=== PATIENT | male | born 1975 | race African-American/Black ===

== ENCOUNTER 2019-07-15 20:01 | Inpatient (IN) | payer MEDICAID ==
[~2019-07-15] VITALS: Ht 182.9 cm; Wt 123.8 kg
--- NOTE | 2019-07-15 20:08 | NUR ---
SL NITRO 2ND ONE GIVEN, PT REPORTS CHEST PAIN, EDUCATED ON USE AND SIDE EFFECTS.
--- NOTE | 2019-07-15 20:09 | NUR ---
EKG IN PROGRESS IN TRIAGE.
[2019-07-15 20:36] LABS: BASOPHIL % 0.6 % (0-2); PLATELET COUNT 290 x10^3mcL (130-400); RED CELL DISTRIBUTION WIDTH 13.6 % (11.5-14.5)
--- NOTE | 2019-07-15 20:48 | NUR ---
DR. CHAPMAN AT BEDSIDE FOR MSE. 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 PT ATTACHED TO FULL SCREEN PRINTING CLOTH SPREADER, CONTINOUS PULSE OXIMETYR. PT AOX4 ABLE TO RESPNOD TO COMMANDS, MAKE NEEDS KNOWN. LUNG SOUNDS CTAB.
[2019-07-15 20:49] LABS: CALCIUM 8.5 mg/dL (8.5-10.1); CARBON DIOXIDE 25.9 mmol/L (21-32); CHLORIDE SERUM 107 mmol/L (98-107); CREATININE SERUM 1.1 mg/dL (0.7-1.3); GFR1 > 60 mL/min; GLUCOSE SERUM 115 mg/dL (74-106); POTASSIUM SERUM 3.7 mmol/L (3.5-5.1); SODIUM SERUM 143 mmol/L (136-145)
[2019-07-15 20:54] LABS: ALBUMIN 3.9 g/dL (3.4-5.0); ALKALINE PHOSPHATASE 73 U/L (46-116); ALT/SGPT 29 U/L (16-63); AST/SGOT 11 U/L (15-37); BILIRUBIN TOTAL 0.34 mg/dL (0.20-1.00); TOTAL PROTEIN, SERUM 7.6 g/dL (6.4-8.2)
--- NOTE | 2019-07-15 21:03 | NUR ---
SL NITRO GIVEN AT THIS TIME, EDUCATED PT AND FMAILY MEMBER AT BEDSIDE ON USE AND SIDE EFFECTS.
--- NOTE | 2019-07-15 21:08 | NUR ---
SL NITRO 2ND ONE GIVEN, PT REPORTS CHEST PAIN, EDUCATED ON USE AND SIDE EFFECTS.
--- NOTE | 2019-07-15 21:13 | NUR ---
PT DENIES CHEST PAIN AT THIS TIME. SL NITRO HELD.
--- NOTE | 2019-07-15 21:14 | NUR ---
DR. CHAPMAN MADE AWARE OF 2X NITRO SL GIVEN AND 3RD ONE HELD.
--- NOTE | 2019-07-15 21:55 | NUR ---
DR. CHAPMAN AT BEDSIDE FOR ASSESSMENT, DISCUSSING PLAN OF CARE. PER PT HE REPORTS "FEELING BETTER, JUST WEAK". PER DR. CHAPMAN PLAN TO ADMIT PATIENT.
[2019-07-15] MEDS ORDERED: METOPROLOL TART25 M1 PO (22:14)
--- NOTE | 2019-07-15 22:57 | NUR ---
PER DR. CHAPMAN OK TO ADMIT PATIENT TO TELE. WILL AWAIT FOR BED AND GIVE REPORT TO RN.
--- NOTE | 2019-07-15 23:47 | NUR ---
PT REPORT CALLED TO CARLI TIDWELL TO ASSUME PT CARE.
--- NOTE | 2019-07-15 23:55 | NUR ---
PT TRANSFERRED TO [facility] BY [facility] BY MYSELF AND GUNNER EMT. PT ON FULL CM FOR TRANSFER. PT ACCEPTED BY JORGE LUIS TIDWELL AND CARLI TIDWELL TO ASSUME PT CARE. PT AOX4, RESP EVEN AND UNLABORED, NO ACUTE DISTRESS NOTED. PT TRANSFERRED FROM [facility] TO BED WITHOUT INCIDENT.
--- NOTE | 2019-07-16 | NUR ---
RECEIVED PT FROM ED VIA TONY, CAME IN DUE TO CHEST PAIN W/ NUMBNESS ON LFA. AAOX4. C/O 03/17 HEADACHE. DENIES DIZZINESS. ABLE TO FOLLOW COMMANDS. NO SOB NOTED, LUNG SOUNDS DIMINISHED ON AUSCULTATION, O2 SAT=97%, RA. DENIES CHEST PAIN/PRESSURE, SR ON THE MONITOR. DENIES ABDOMINAL DISCOMFORT. BOWEL SOUNDS ACTIVE. ABDOMEN IS ROUND AND SOFT. VOIDS. IV SITE PATENT AND INTACT. SIDE RAILS UPX2. CALL LIGHT ON REACH. ENDORSED TO PRIMARY NURSE CARLI FOR CONTINUITY OF CARE
[2019-07-16 00:12] VITALS: BP 128/85
[2019-07-16 00:17] LABS: MAGNESIUM 2.2 mg/dL (1.8-2.4)
[2019-07-16 00:18] VITALS: Ht 182.9 cm; Wt 123.8 kg
[2019-07-16 00:20] LABS: CHOLESTEROL/HDL RATIO 5.7
--- NOTE | 2019-07-16 00:20 | NUR ---
PT RECEIVED FROM RESOURCE NURSE. PT A/O X4, ABLE TO MAKE NEEDS KNOWN. FAMILY AT BEDSIDE. TELE #8, PT ADMITTED FOR CP, BUT DENIES ANY AT THIS TIME. PULSES PALPABLE, NO EDEMA PRESENT. BREATHING IS EVEN AND UNLABORED ON RA, NO RESP DISTRESS NOTED. ABD SOFT AND ROUND, DENIES N/V. VOIDS FREELY, BRP. GENERALIZED WEAKNESS, AMBULATORY WITH STEADY GAIT. SKIN IS WARM AND DRY, INTACT. PT REPORTS 5/10 H/A IS IMPROVING; OFFERED PT PAIN MEDS, PT REFUSED AT THIS TIME. IV TO LFA, PATENT AND INTACT, SITE. NO ACUTE DISTRESS NOTED. ORIENTED PT TO ROOM AND CALL LIGHT. BED IN LOWEST SETTING, SIDE RAILS UP X2, CALL LIGHT WITHIN REACH. WILL CONT TO MONITOR.
[2019-07-16 00:27] LABS: T3 TOTAL 1.12 ng/mL
[2019-07-16 00:29] LABS: FREE T4 0.91 ng/dL (0.76-1.46); FREE THYROXINE INDEX 2.4 ug/dL (1.4-4.5); T4(THYROXINE) 6.4 ug/dL (4.7-13.3)
--- NOTE | 2019-07-16 05:23 | NUR ---
PT SLEPT WELL THROUGHOUT THE EVENING. BREATHING IS EVEN AND UNLABORED, NO RESP DISTRESS NOTED. PT DENIES ANY PAIN AT THIS TIME. IVF INFUSING WELL TO [facility], SITE WNL. NO ACUTE CHANGES ENCOUNTERED DURING SHIFT. ALL NEEDS MET AND ANTICIPATED. PT COMPLIANT WITH NURSING CARE. CALL LIGHT WITHIN REACH. WILL ENDORSE CARE TO AM NURSE.
[2019-07-16 05:27] VITALS: BP 133/88
[2019-07-16 06:13] LABS: BASOPHIL % 0.2 % (0-2); PLATELET COUNT 262 x10^3mcL (130-400); RED CELL DISTRIBUTION WIDTH 13.8 % (11.5-14.5)
[2019-07-16 06:43] LABS: CALCIUM 8.5 mg/dL (8.5-10.1); CARBON DIOXIDE 26.5 mmol/L (21-32); CHLORIDE SERUM 106 mmol/L (98-107); GFR1 > 60 mL/min; GLUCOSE SERUM 111 mg/dL (74-106); POTASSIUM SERUM 3.9 mmol/L (3.5-5.1); SODIUM SERUM 141 mmol/L (136-145)
--- NOTE | 2019-07-16 07:27 | NUR ---
PT IN NO ACUTE DISTRESS. CONTINUITY OF CARE ENDORSED TO GORDON TIDWELL. ALL QUESTIONS AND CONCERNS ADDRESSED.
--- NOTE | 2019-07-16 07:40 | NUR ---
RECEIVED PT FROM CORRECTIONAL FACILITY PSYCHIATRIST RN. Elder/PETER. TELE#8. DENIES CHEST PAIN/PRESSURE AT THIS TIME. PT DENIES ANY RIVERA AT THIS TIME. RESPIRATIONS EQUAL AND UNLABORED ON RA. DENIES SOB. URINE SAMPLE COLLECTED AND SENT TO LAB. PT ASKING IF HE CAN GO HOME. IV TO LFA PATENT AND INFUSING. NO REDNESS OR SWELLING NOTED. WILL CONTINUE TO MONITOR. CALL LIGHT IN REACH. BED IN LOWEST POSITION.
[2019-07-16 07:44] VITALS: BP 142/95
[2019-07-16 08:16] LABS: microscopic required? NO
[2019-07-16 08:30] LABS: UA SPECIFIC GRAVITY >=1.030 (1.005-1.035); urine erythrocyte NEGATIVE (NEGATIVE)
[2019-07-16 08:45] LABS: AMPHETAMINE QUAL UR NONE DETECTED (See below)
--- NOTE | 2019-07-16 09:19 | NUR ---
PT SITTING UP IN BED. NO ACUTE RESP DISTRESS NOTED ON RA. PT DENIES ANY CHEST PAIN/PRESSURE AT THIS TIME. PT DENIES ANY LEFT ARM NUMBNESS OR WEAKNESS. BLOOD PRESSURE CHECKED WAS 141/88, HR 70. GIVEN PO MEDS. TOLERATED WELL. NICODERM PATCH APPLIED TO YUDY. PT EDUCATED ON USE OF MEDICATION AND SIDE EFFECTS. VERBALIZED UNDERSTANDING. IV PATENT AND INFUSING TO LFA. NO REDNESS OR SWELLING NOTED. WILL CONTINUE TO MONITOR. CALL LIGHT IN REACH. BED IN LOWEST POSITION.
--- NOTE | 2019-07-16 11:50 | NUR ---
PT SITTING UP IN BED. NO ACUTE RESP DISTRESS NOTED ON RA. PT DENIES ANY CHEST PAIN/PRESSURE AT THIS TIME. PT REFUSED NITROL. PT STATES "I DONT NEED IT. I AM NOT HAVING ANY CHEST PAIN. IT GAVE ME A HEADACHE LAST TIME" PT ASKING IF IV FLUIDS CAN BE STOPPED. PT STATES "I AM EATING DRINKING OKAY. I FEEL LIKE I DONT NEED IT." SPOKE WITH DR. FOSTER PER DR. CRISTIAN SO TO D/C IV FLUIDS. IV SALINE LOCKED TO LFA. NO REDNESS OR SWELLING NOTED. WILL CONTINUE TO MONITOR. CALL LIGHT IN REACH. BED IN LOWEST POSITION.
[2019-07-16 12:46] VITALS: BP 134/83
--- NOTE | 2019-07-16 12:52 | NUR ---
PT SITTING UP IN BED. NO ACUTE RESP DISTRESS NOTED ON RA. ECHO COMPLETE. PT DENIES ANY CHEST PAIN/PRESSURE AT THIS TIME. WILL CONTINUE TO MONITOR. CALL LIGHT IN REACH. BED IN LOWEST POSITION.
[2019-07-16 16:49] VITALS: BP 139/93
--- NOTE | 2019-07-16 17:05 | NUR ---
PT SITTING UP IN BED. PT DENIES ANY CHEST PAIN/PRESSURE AT THIS TIME. NO ACUTE RESP DISTRESS NOTED ON RA. PT STATES "I HAVE TO WORK TOMORROW. 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 FOSTER AND LET HIM KNOW. PER DR. FOSTER WILL COME AND SPEAK WITH PT. WILL CONTINUE TO MONITOR. CALL LIGHT IN REACH. BED IN LOWEST POSITION.
[2019-07-16 18:10] VITALS: BP 139/93
--- NOTE | 2019-07-16 18:50 | NUR ---
PT SITTING UP IN BED. SISTER AT BEDSIDE. DR. MEYER SPEAKING WITH PT. PER DR. MEYER RECOMMENDS PT START LISINOPRIL AND FOLLOW UP WITH PRIMARY CARE PROVIDER. PT VERBALIZED UNDERSTANDING. PT STILL ASKING TO GO HOME. CALLED [facility] BARGE OPERATOR PHONE SPOKE WITH DR. SALGUERO PER DR. JOSE M CONTRERASAY TO DISCHARGE THE PT TONIGHT, BUT WILL TAKE SOME TIME BEFORE DISCHARGE IS READY. PT INFORMED AND VERBALIZED UNDERSTANDING. WILL ENDORSE TO CONCRETE FLOOR INSTALLER RN. CALL LIGHT IN REACH. BED IN LOWEST POSITION.
[2019-07-16] MEDS ORDERED: LISINOPRIL10 MG PO (18:54)
--- NOTE | 2019-07-16 19:57 | NUR ---
RECEIVED PT FROM DAY SHIFT RN. PT AAOX4. BREATHING EVEN AND UNLABORED ON RA. NO SOB NOTED. PT WAITING FOR D/C ORDERS. DISCHARGE ORDER RECEIVED. IV D/C WITH CATH INTACT. EDUCATED PT ON D/C RECCOMENDATIONS. ALL QUESTIONS ADDRESSED. TELE BOX REMOVED AND RETURNED TO ALLERGIST/IMMUNOLOGIST. PT LEFT FACILTY ASSITED BY BOX TOE CEMENTER VIA WHEELCHAIR IN NO SIGNS OF DISTRESS.
== END 2019-07-16 20:00 | disposition home or self-care (01) | DRG 203 ==
LOC: ED 20:01 → DU 22:38
PROVIDERS: ADMIT Internal Medicine
DX: M94.0 Chondrocostal junction syndrome [Tietze] (principal); E66.9 Obesity, unspecified; R73.03 Prediabetes; I16.0 Hypertensive urgency; E78.5 Hyperlipidemia, unspecified; Z79.82 Long term (current) use of aspirin; Z68.37 Body mass index [BMI] 37.0-37.9, adult; F17.210 Nicotine dependence, cigarettes, uncomplicated
CPT/HCPCS: 83880; 84439; G0378; J1885; J2405; J7030

== ENCOUNTER 2019-09-05 10:05 | Emergency (ER) | payer MEDICAID ==
[~2019-09-05] VITALS: Ht 182.9 cm; Wt 121.1 kg
[~2019-09-05 10:05] MED LIST: LISINOPRIL10 MG PO; METOPROLOL TART25 M1 PO
[2019-09-05 10:12] VITALS: Ht 182.9 cm; Wt 121.1 kg
[2019-09-05 10:55] LABS: BASOPHIL % 0.5 % (0-2); PLATELET COUNT 309 x10^3mcL (130-400); RED CELL DISTRIBUTION WIDTH 13.1 % (11.5-14.5)
[2019-09-05 10:59] LABS: CALCIUM 9.3 mg/dL (8.5-10.1); CARBON DIOXIDE 27.1 mmol/L (21-32); CHLORIDE SERUM 106 mmol/L (98-107); CREATININE SERUM 0.8 mg/dL (0.7-1.3); GFR1 > 60 mL/min; GLUCOSE SERUM 121 mg/dL (74-106); POTASSIUM SERUM 4.1 mmol/L (3.5-5.1); SODIUM SERUM 141 mmol/L (136-145)
[2019-09-05 11:04] LABS: ALBUMIN 3.9 g/dL (3.4-5.0); ALKALINE PHOSPHATASE 85 U/L (46-116); ALT/SGPT 25 U/L (16-63); AST/SGOT 7 U/L (15-37); BILIRUBIN TOTAL 0.25 mg/dL (0.20-1.00); TOTAL PROTEIN, SERUM 7.9 g/dL (6.4-8.2)
[2019-09-05 12:12] VITALS: BP 128/95
== END 2019-09-05 12:12 | disposition home or self-care (01) ==
LOC: ED 10:05
PROVIDERS: Emergency Medicine
DX: I10 Essential (primary) hypertension (principal); Z88.5 Allergy status to narcotic agent
CPT/HCPCS: 36415